=== PATIENT | female | born 1975 | race Caucasian/White ===

== ENCOUNTER 2017-05-01 23:39 | Emergency (ER) | payer MEDICAID ==
[~2017-05-01] VITALS: Ht 172.7 cm; Wt 56.7 kg
[2017-05-02 00:37] VITALS: BP 150/71
== END 2017-05-02 02:28 | disposition home or self-care (01) ==
LOC: ER 23:39
DX: J02.0 Streptococcal pharyngitis (principal); E03.9 Hypothyroidism, unspecified; D64.9 Anemia, unspecified
CPT/HCPCS: 87880; 99283; A4606; Z7610; 86403-TC